=== PATIENT | female | born 1975 | race Caucasian/White ===

== ENCOUNTER 2023-03-10 06:36 | Emergency (ER) | payer OTHER ==
--- NOTE | 2023-03-10 08:04 | ED ---
General Adult HPI - General Chief complaint: Neuro Symptoms/Deficit Stated complaint: Tingeling from waist down Time Seen by Provider: 03/10/23 07:27 Source: patient Mode of arrival: ambulatory Limitations: no limitations - History of Present Illness Initial comments: Dictation was produced using [employer] dictation software. please excuse any grammatical, word or spelling errors. Chief Complaint: 47-year-old male presents with bilateral lower extremity numbness and paresthesias History of Present Illness: Is a 47 year old female presents with bilateral lower extremity numbness and paresthesias. States that it begins in her bilat eral buttocks area and wraps around her leg. It initially starts to the buttocks area travels on the hamstrings to the bilateral knees and anterior oakes area. Patient has a history of multiple sclerosis. She states that she is in remission. She treats her multiple sclerosis with weekly injections that she self administers. She has had a diagnosis of multiple sclerosis for the last 20 years. Patient denies any weakness of the lower extremities. Denies any other complaints. She did a stool sample that she allegedly screen positive for possible colon cancer. She has not followed up with further testing for that. Patient has no other complaints. She states that her initial multiple sclerosis was diagnosed with vision changes in 2002. She just saw her neurologist on February 17 at that time she was asymptomatic. Her symptoms began 3 or 4 days ago. She has an appointment with her neurologist at 1:15 PM today. Patient states she feels very anxious about her symptoms The ROS documented in this emergency department record has been reviewed and confirmed by me. Those systems with pertinent positive or negative responses have been documented in the HPI. All other systems are other negative and/or noncontributory. - Related Data Allergies Allergy/AdvReac Type Severity Reaction Status Date / Time No Known Allergies Allergy Verified 03/10/23 06:48 Review of Systems ROS Statement: Those systems with pertinent positive or pertinent negative responses have been documented in the HPI. ROS Other: All systems not noted in ROS Statement are negative. Past Medical History Additional Past Medical History / Comment(s): MS, remission since 2002 Past Surgical History: No Surgical Hx Reported Past Psychological History: Anxiety Smoking Status: Current every day smoker Past Alcohol Use History: None Reported Past Drug Use History: None Reported General Exam - General Exam Comments Initial Comments: PHYSICAL EXAM: General Impression: Alert and oriented x3, not in acute distress HEENT: Normocephalic atraumatic, extra-ocular movements intact, pupils equal and reactive to light bilaterally, mucous membranes moist. Cardiovascular: Heart regular rate and rhythm Chest: Able to complete full sentences, no retractions, no tachypnea Abdomen: abdomen soft, non-tender, non-distended, no organomegaly Musculoskeletal: Pulses present and equal in all extremities, no peripheral edema Motor: no focal deficits noted Neurological: CN II-XII grossly intact, no focal motor deficits noted. Reported deficit to light touch over the bilateral buttocks, hamstring, lateral knee and oakes. Skin: Intact with no visualized rashes Psych: Normal affect and mood Limitations: no limitations Course Vital Signs 03/10/23 03/10/23 03/10/23 06:42 08:10 09:05 Temperature 97.7 F 98.6 F Pulse Rate 86 82 78 Respiratory 18 17 17 Rate Blood Pressure 139/84 149/101 134/90 O2 Sat by Pulse 99 98 96 Oximetry Medical Decision Making - Medical Decision Making Was pt. sent in by a medical professional or institution (, PA, HANDTOOLS REPAIRER, urgent care, hospital, or alf...) When possible be specific @ -No Did you speak to anyone other than the patient for history (EMS, parent, family, police, friend...)? What history was obtained from this source @ -No Did you review nursing and triage notes (agree or disagree)? Why? @ -I reviewed and agree with nursing and triage notes Were old charts reviewed (outside hosp., previous admission, EMS record, old EKG, old radiological studies, urgent care reports/EKG's, alf records)? Report findings @ -No old charts were reviewed Differential Diagnosis (chest pain, altered mental status, abdominal pain women, abdominal pain men, vaginal bleeding, musculoskeletal, weakness, fever, dyspnea, syncope, headache, dizziness, GI bleed, back pain, seizure, CVA, palpatations, mental health)? @ -not applicable EKG interpreted by me (3pts min.). @ -None done X-rays interpreted by me (1pt min.). @ -Abdominal x-ray shows no obstructive bowel pattern CT interpreted by me (1pt min.). @ -None done U/S interpreted by me (1pt. min.). @ -None done What testing was considered but not performed or refused? (CT, X-rays, U/S, labs)? Why? @ -None What meds were considered but not given or refused? Why? @ -None Did you discuss the management of the patient with other professionals (professionals i.e. , PA, HANDTOOLS REPAIRER, lab, RT, psych nurse, licensed social worker, supply teacher, teacher, airconditioning drafting officer, community case manager)? Give summary @ -No Was smoking cessation discussed for >3mins.? @ -No Was critical care preformed (if so, how long)? @ -No Were there social determinants of health that impacted care today? How? (Homelessness, low income, unemployed, alcoholism, drug addiction, transportation, low edu. Level, literacy, decrease access to med. care, usp, rehab)? @ -No Was there de-escalation of care discussed even if they declined (Discuss DNR or withdrawal of care, Hospice)? DNR status @ -No What co-morbidities impacted this encounter? (DM, HTN, Smoking, COPD, CAD, Cancer, CVA, ARF, Chemo, Hep., AIDS, mental health diagnosis, sleep apnea, morbid obesity)? @ -None Was patient admitted / discharged? Hospital course, mention meds given and route, prescriptions, significant lab abnormalities, going to OR and other pertinent info. @ -47-year-old female with history of multiple sclerosis presents to the ER for neuropathic symptoms of the bilateral lower extremities. Patient has no high- risk features. She does have an appointment with her neurologist today at 1:15pm. Laboratory evaluation is unremarkable. Patient observed in emergency part for 3 hours in stable medical condition. Labs were discussed with patient. This point patient has no high-risk features. She is agreeable for discharge and to maintain appointment with her neurologist. At this point there is suspicion that patient has MS plaque along her spine. Undiagnosed new problem with uncertain prognosis? @ -No Drug Therapy requiring intensive monitoring for toxicity (Heparin, Nitro, Insulin, Cardizem)? @ -No Were any procedures done? @ -No Diagnosis/symptom? Acute, or Chronic, or Acute on Chronic? Uncomplicated (without systemic symptoms) or Complicated (systemic symptoms)? @ -Lower extremities neuropathy Side effects of treatment? @ -No Exacerbation, Progression, or Severe Exacerbation? @ -No Poses a threat to life or bodily function? How? (Chest pain, USA, AL, pneumonia, PE, COPD, DKA, ARF, appy, cholecystitis, CVA, Diverticulitis, Homicidal, Suicidal, threat to staff... and all critical care pts) @ -yes - Lab Data Result diagrams: 03/10/23 08:07 03/10/23 08:07 Lab Results 03/10/23 03/10/23 Range/Units 08:07 08:07 WBC 6.0 (3.8-10.6) k/uL RBC 5.29 (3.80-5.40) m/uL Hgb 15.2 (11.4-16.0) gm/dL Hct 45.1 (34.0-46.0) % MCV 85.3 (80.0-100.0) fL MCH 28.7 (25.0-35.0) pg MCHC 33.7 (31.0-37.0) g/dL RDW 12.6 (11.5-15.5) % Plt Count 149 L (150-450) k/uL MPV 9.5 Neutrophils % 72 % Lymphocytes % 18 % Monocytes % 7 % Eosinophils % 1 % Basophils % 1 % Neutrophils # 4.3 (1.3-7.7) k/uL Lymphocytes # 1.1 (1.0-4.8) k/uL Monocytes # 0.4 (0-1.0) k/uL Eosinophils # 0.1 (0-0.7) k/uL Basophils # 0.0 (0-0.2) k/uL Sodium 140 (137-145) mmol/L Potassium 5.0 (3.5-5.1) mmol/L Chloride 102 (98-107) mmol/L Carbon Dioxide 24 (22-30) mmol/L Anion Gap 14 mmol/L BUN 14 (7-17) mg/dL Creatinine 0.60 (0.52-1.04) mg/dL Est GFR (CKD-EPI)AfAm >90 (>60 ml/min/1.73 sqM) Est GFR (CKD-EPI)NonAf >90 (>60 ml/min/1.73 sqM) Glucose 122 H (74-99) mg/dL Calcium 9.8 (8.4-10.2) mg/dL Magnesium 2.0 (1.6-2.3) mg/dL Disposition Clinical Impression: Neuropathy Disposition: HOME SELF-CARE Condition: Fair Instructions (If sedation given, give patient instructions): Multiple Sclerosis (DC) Additional Instructions: go to neurologist appointment today as scheduled Is patient prescribed a controlled substance at d/c from ED?: No Time of Disposition: 09:33
[2023-03-10 08:26] LABS: Basophils % (A) 1 %; Eosinophils # (A) 0.1 k/uL (0-0.7); Eosinophils % (A) 1 %; HCT 45.1 % (34.0-46.0); HGB 15.2 gm/dL (11.4-16.0); Lymphocytes # (A) 1.1 k/uL (1.0-4.8); Lymphocytes % (A) 18 %; MCH 28.7 pg (25.0-35.0); MCHC 33.7 g/dL (31.0-37.0); MCV 85.3 fL (80.0-100.0); Mean Platelet Volume 9.5; Monocytes # (A) 0.4 k/uL (0-1.0); Monocytes % (A) 7 %; Neutrophils # (A) 4.3 k/uL (1.3-7.7); Neutrophils % (A) 72 %; Platelet Count 149 k/uL (150-450); RBC 5.29 m/uL (3.80-5.40); RDW 12.6 % (11.5-15.5)
[2023-03-10 08:42] LABS: African American GFR (CKD) >90 (>60 ml/min/1.73 sqM); Anion Gap 14 mmol/L; Blood Urea Nitrogen 14 mg/dL (7-17); Calcium 9.8 mg/dL (8.4-10.2); Carbon Dioxide 24 mmol/L (22-30); Chloride 102 mmol/L (98-107); Glucose 122 mg/dL (74-99); Non-African American GFR(CKD) >90 (>60 ml/min/1.73 sqM); Sodium 140 mmol/L (137-145)
--- NOTE | 2023-03-10 08:50 | XR ---
EXAMINATION TYPE: XR abdomen acute w cxr DATE OF EXAM: 03/10/2023 COMPARISON: NONE HISTORY: 47-year-old female reported constipation FINDINGS: Chest shows normal heart size, aorta, and pulmonary vasculature. No consolidation or pleura l effusion. No evidence for free intraperitoneal air. No dilated small bowel or air-fluid levels. No suspicious calcifications are seen. Numerous pelvic phleboliths. Only scattered mild stool. Air and stool extends distally to the rectum. IMPRESSION: 1. No acute cardiopulmonary process. 2. No evidence for free air or bowel obstruction. 3. Mild stool burden throughout the colon.
[2023-03-10 09:55] VITALS: BP 143/93; PULSE 74; RESP 16; TEMP 98
== END 2023-03-10 09:54 | disposition home or self-care (01) ==
LOC: EC 06:36
DX: G62.9 Polyneuropathy, unspecified (principal); F17.200 Nicotine dependence, unspecified, uncomplicated
CPT/HCPCS: 36415; 74022; 80048; 83735; 85025; 99284